=== PATIENT | male | born 1985 | race Two or more races ===

== ENCOUNTER 2018-09-03 17:04 | Emergency (ER) | payer SELFPAY ==
[~2018-09-03] VITALS: Ht 165.1 cm; Wt 81.6 kg
[~2018-09-03 17:04] MED LIST: DIVALPROEX SOD500 M2 PO; OXCARBAZEPINE300 MG PO
[2018-09-03 17:05] VITALS: BP 120/74
[2018-09-03] MEDS ORDERED: levETIRAcetam 500 MG in D5W 110 ML IV ONE (17:15)
--- NOTE | 2018-09-03 17:17 | Emergency Room Report ---
History of Present Illness General Chief Complaint: Seizure Source: Patient, Medical Record Present Illness HPI Mr. Winters is a pleasant 33-year-old male who presents with seizure. Generalized tonoclonic seizure was witnessed by onlookers palpation was riding the bus. Eyes rolled back of the head. No incontinence. Seizure episode was brief. EMS noticed mild confusion. Mr. Winters has had seizures since childhood. He has been taking antiepileptics for the last 5 years. He feels worse when he takes antiepileptics. He has not taken his medications for the last 2 days. He works in construction. However, previous physicians have advised him to stop working in this field due to his seizure disorder Allergies: Coded Allergies: No Known Allergies (Unverified , 09/16/16) UNABLE TO ASSESS (Unverified , 09/03/18) Patient History Limited by: language barrier - ED staff member provided Maldivian interpretation Past Surgical History: none Social History: Denies: smoking, alcohol use, drug use Nursing Documentation-[facility] Past Medical History: No History, Except For Hx Seizures: Yes Review of Systems Constitutional: Denies: fever Cardiovascular: Denies: chest pain Gastrointestinal: Denies: abdominal pain All Other Systems: negative except mentioned in HPI Physical Exam Vital Signs Date Time Temp Pulse Resp B/P (MAP) Pulse Ox O2 Delivery O2 Flow Rate FiO2 09/03/18 17:01 97.8 86 18 116/71 96 Room Air 97.9 Sp02 EP Interpretation: reviewed, normal General Appearance: no apparent distress, alert, GCS 15, non-toxic Head: normocephalic, atraumatic Eyes: bilateral eye normal inspection ENT: hearing grossly normal, normal pharynx, no angioedema, normal voice Neck: full range of motion, supple/symm/no masses Respiratory: chest non-tender, lungs clear, normal breath sounds, no rhonchi, no respiratory distress, no retraction, no accessory muscle use, speaking full sentences Cardiovascular #1: regular rate, rhythm, no edema, no gallop, no JVD, no murmur , no rub Cardiovascular #2: 2+ dorsalis pedis (R), 2+ dorsalis pedis (L) Gastrointestinal: normal bowel sounds, non tender, soft, non-distended, no guarding, no rebound Genitourinary: normal inspection, no CVA tenderness Musculoskeletal: back normal, gait/station normal, normal range of motion, non- tender, calf tenderness Neurologic: alert, oriented x3, responsive, motor strength/tone normal, sensory intact, speech normal Psychiatric: judgement/insight normal, memory normal, mood/affect normal Skin: normal color, no rash, warm/dry, well hydrated Medical Decision Making Diagnostic Impression: Primary Impression: Epileptic seizure, generalized Additional Impression: Seizure disorder ER Course Mr. Winters is currently symptom free with normal neurological exam upon arrival. He received IV Keppra. Dc'd home. He has had symptoms of dyspnea for quite some time. He feels that he may have asthma. No current dyspnea at this time. labs reviewed normal except for nonspecific WBC elevation Last Vital Signs Date Time Temp Pulse Resp B/P (MAP) Pulse Ox O2 Delivery O2 Flow Rate FiO2 09/03/18 17:01 97.8 86 18 116/71 96 Room Air 97.9 Disposition: HOME, SELF-CARE Jessica March MD Sep 03, 2018 17:17
[2018-09-03 17:50] LABS: ANION GAP 15 mmol/L (5-15); BLOOD UREA NITROGEN 10 mg/dL (7-18); CALCIUM 9.2 MG/DL (8.5-10.1); CARBON DIOXIDE 21 MMOL/L (21-32); CHLORIDE 102 MMOL/L (98-107); POTASSIUM 3.7 MMOL/L (3.5-5.1); SODIUM 138 MMOL/L (136-145)
[2018-09-03 17:54] LABS: BASOPHILS % (AUTO) 1.9 % (0.0-2.0); EOSINOPHILS % (AUTO) 7.3 % (0.0-3.0); HEMATOCRIT 44.8 % (42.0-52.0); HEMOGLOBIN 15.5 G/DL (14.2-18.0); LYMPHOCYTES % (AUTO) 39.7 % (20.0-45.0); MEAN CORPUSCULAR VOLUME 88 FL (80-99); MONOCYTES % (AUTO) 8.5 % (1.0-10.0); NEUTROPHILS % (AUTO) 42.6 % (45.0-75.0); PLATELET COUNT 193 K/UL (150-450); RED BLOOD COUNT 5.11 M/UL (4.70-6.10); RED CELL DISTRIBUTION WIDTH 11.4 % (11.6-14.8); WHITE BLOOD COUNT 11.6 K/UL (4.8-10.8)
[2018-09-03 18:23] VITALS: BP 120/74
== END 2018-09-03 18:24 | disposition home or self-care (01) ==
LOC: EDBD 17:04 → EMR 17:55
DX: G40.409 Other generalized epilepsy and epileptic syndromes, not intractable, without status epilepticus (principal)
CPT/HCPCS: 36415; 80048; 85025; 96374; 99284; J1953